=== PATIENT | female | born 2000 | race Caucasian/White ===

== ENCOUNTER 2021-10-02 09:47 | Outpatient (REF) | payer OTHER, SELFPAY ==
[2021-10-02 11:52] LABS: Hematocrit 42.1 % (37.0-47.0); Hemoglobin 13.9 g/dl (12.0-16.0); Mean Corpuscular Hemoglobin 28.6 pg (27.0-33.0); Mean Corpuscular Volume 86.6 fL (80.0-98.0); Platelet Count 262 X10*3/uL (160-400); Red Blood Count 4.86 X10*6/uL (4.20-5.50); Red Cell Distribution Width 11.9 % (11.0-16.0)
[2021-10-02 12:13] LABS: Alanine Aminotransferase 15 U/L (0-31); Albumin Level 4.5 g/dL (3.5-5.0); Alkaline Phosphatase 74 U/L (39-117); Anion Gap 9 (12-20); Aspartate Amino Transferase 20 U/L (5-31); Bilirubin Total 0.6 mg/dL (0.0-1.0); Blood Urea Nitrogen 16 mg/dL (9-16); Carbon Dioxide 30 mmol/L (22-29); Chloride 104 mmol/L (96-108); Cholesterol 227 mg/dL; Estimated Glomerular Filt Rate > 60; Glucose Fasting 67 mg/dL (60-99); HDL Cholesterol 61 mg/dL; LDL Cholesterol Calculated 150 mg/dl; Potassium 4.6 mmol/L (3.3-5.1); Sodium 138 mmol/L (135-145); Total Protein 7.3 g/dL (6.5-8.0); Triglycerides 81 mg/dL
[2021-10-02 12:20] LABS: TSH reflex Free T4 0.96 uIU/mL (0.32-4.0)
[2021-10-04 12:37] LABS: TS Negative Control Passed; TS Panel A 0; TS Panel B 0; TS Positive Control Passed; TSpotTB Negative (Negative)
== END 2021-10-02 09:48 | disposition home or self-care (01) ==
LOC: HO.WFDLDS 09:47
PROVIDERS: Visit Provider Hospitalist
DX: Z00.00 Encounter for general adult medical examination without abnormal findings (principal); Z11.1 Encounter for screening for respiratory tuberculosis
CPT/HCPCS: 36415; 80053; 80061; 84443; 85027; 86481

== ENCOUNTER 2021-11-20 15:05 | Outpatient (REF) | payer OTHER, SELFPAY | END 2021-11-20 15:06 | disposition home or self-care (01) | LOC: HO.LAB 15:05 | PROVIDERS: Visit Provider Hospitalist | DX: R10.819 Abdominal tenderness, unspecified site (principal) | CPT/HCPCS: 87086 ==

== ENCOUNTER 2022-03-11 13:24 | Outpatient (REF) | payer OTHER, SELFPAY | END 2022-03-11 13:25 | disposition home or self-care (01) | LOC: HO.LNP 13:24 | PROVIDERS: Visit Provider Nurse Practitioner Family | DX: N39.0 Urinary tract infection, site not specified (principal) | CPT/HCPCS: 87086; 87088; 87186 ==

== ENCOUNTER 2022-03-23 10:05 | Outpatient (REF) | payer OTHER, SELFPAY ==
[2022-03-23 11:59] LABS: Cholesterol 200 mg/dL; HDL Cholesterol 57 mg/dL; LDL Cholesterol Calculated 130 mg/dl; Triglycerides 68 mg/dL
== END 2022-03-23 10:06 | disposition home or self-care (01) ==
LOC: HO.WFDLDS 10:05
PROVIDERS: Visit Provider Hospitalist
DX: Z83.42 Family history of familial hypercholesterolemia (principal)
CPT/HCPCS: 36415; 80061